=== PATIENT | male | born 1980 | race Two or more races ===

== ENCOUNTER 2024-11-15 06:15 | Day surgery (SDC) | payer BC ==
[2024-11-14 10:29] VITALS: BMI 25.2
[2024-11-15] MEDS ORDERED: GENTAMICIN SO4 80 MG/2 ML VIAL ONE (07:39)
[2024-11-15] MEDS ORDERED: VANCOMYCIN 1,000 MG VIAL (RESTRICTED TO ID ONLY) ONE ×2 (07:39→09:55)
[2024-11-15] MEDS ORDERED: AMPHOTERICIN B LIPOSOMAL 50 MG VIAL (RESTRICTED TO ID) IVPB ONE (09:30)
[2024-11-15] MEDS ORDERED: ONDANSETRON 4 MG/2 ML VIAL IVPUSH PRN (10:13)
[2024-11-15] MEDS ORDERED: LACTATED RINGERS SOLUTION 1,000 ML IV SCH (10:15)
[2024-11-15] MEDS ORDERED: GENTAMICIN 80 MG PREMIXED IVPB 80 MG/100 ML BAG IVPB SCH (10:30)
[2024-11-15] MEDS ORDERED: VANCOMYCIN/WATER FOR INJ (PEG) 1,000 MG/200 ML BAG IVPB ONE (10:30)
[2024-11-15] MEDS: VANCOMYCIN 1,000 MG VIAL (RESTRICTED TO ID ONLY) IVPB ONE (11:00)
[2024-11-15] MEDS: GENTAMICIN SO4 80 MG/2 ML VIAL IVPB ONE (11:00)
[2024-11-15] MEDS ORDERED: MIDAZOLAM HCL 2 MG/2 ML SINGLE DOSE VIAL ONE ×2 (11:12→11:48)
[2024-11-15] MEDS ORDERED: LIDOCAINE HCL/PF 2% SDV 5ML VIAL ONE (11:13)
[2024-11-15] MEDS ORDERED: PROPOFOL 20 ML ONE (11:14)
[2024-11-15] MEDS ORDERED: DEXAMETHASONE SOD PHOSPHATE 4 MG/1 ML VIAL ONE (11:56)
[2024-11-15] MEDS ORDERED: ACETAMINOPHEN 1000 MG/100 ML BAG IVPB ONE (12:00)
[2024-11-15] MEDS ORDERED: ONDANSETRON 4 MG/2 ML VIAL ONE (12:26)
[2024-11-15 17:27] VITALS: RESP 18
[2024-11-15 18:13] VITALS: PULSE 68
[2024-11-15 19:13] VITALS: BP 107/68; TEMP 97.9
== END 2024-11-15 18:50 | disposition home or self-care (01) ==
LOC: JASU-SURG 06:15
PROVIDERS: ATTEND Urology
PROC: 0VUS0JZ Supplement Penis with Synthetic Substitute, Open Approach (ICD-10-PCS; principal; 2024-11-15 10:30)
PROC: 0VTTXZZ Resection of Prepuce, External Approach (ICD-10-PCS; 2024-11-15 10:30)
DX: N52.9 Male erectile dysfunction, unspecified (principal); N47.1 Phimosis
CPT/HCPCS: 54161; 54405; C1813; 88304-TC; 94760